=== PATIENT | male | born 1985 | race Two or more races ===

== ENCOUNTER 2019-08-22 13:28 | Emergency (ER) | payer SELFPAY ==
[~2019-08-22] VITALS: Ht 162.6 cm; Wt 69.7 kg
[2019-08-22 13:31] VITALS: BP 126/85
--- NOTE | 2019-08-22 14:43 | NUR ---
pt given dc instructions and script, educated regarding ortho f/u and rx for naproxen. wrist lacer splint placed per edpa's instructions, pt tolerated well. pt a&o, resps even and unlabored, amb to dc desk with steady gait. all questions answered.
== END 2019-08-22 14:44 | disposition home or self-care (01) ==
LOC: ED 14:30
DX: G56.02 Carpal tunnel syndrome, left upper limb (principal); F17.200 Nicotine dependence, unspecified, uncomplicated
CPT/HCPCS: 29260; 99283